=== PATIENT | female | born 1955 | race Caucasian/White ===

== ENCOUNTER → 2016-08-24 | Outpatient (CLI) | payer OTHER ==
[~2016-08-24] MED LIST: BROVANA15 MCG/2 M INH; DALIRESP500 MCG PO; DOXEPIN HCL100 MG PO; EFFEXOR 37.537.5 MG PO; EFFEXOR XR 75 M75 MG PO; FISH OIL 1,0001 EAC3 PO; FLONASE 0.05% N16 GM; KLONOPIN TAB 00.5 MG PO; LEVAQUIN500 MG PO; LEVAQUIN750 MG PO; MULTIVITAMINS1 EAC1 PO; NEURONTIN 300300 MG PO; NORVASC 5 MG TAB5 MG PO; PERFOROMIS20 MCG/2 M NEB; PERFOROMIS20 MCG/21 HHN; PRAVACHOL40 MG PO; PREDNISONE10 M1 PO; PROAIR HFA8.5 GM INH; PROPRANOLOL HCL60 MG PO; PROVENTIL HFA 61 INH INH; PULMICORT0.5 MG/2 M NEB; PULMICORT0.5 MG/21 INH; ROPINIROLE HC0.25 MG PO; SPIRIVA HANDIH18 MCG INH; SPIRIVA18 MCG INH; SYMBICORT 80-10.2 GM INH; TRAMADOL HCL50 MG PO; TYLENOL 325MG325 MG PO; ULTRAM50 MG PO; VENLAFAXINE HC150 MG PO; VENTOLIN/PROVE0.5 ML INH
== END ==
LOC: LAB 17:28
DX: R30.0 Dysuria (principal)
CPT/HCPCS: 81001; 87086

== ENCOUNTER → 2016-09-08 | Outpatient (CLI) | payer OTHER | LOC: SLEEP 21:30 | DX: G47.33 Obstructive sleep apnea (adult) (pediatric) (principal) | CPT/HCPCS: 95810 ==

== ENCOUNTER 2016-11-08 21:53 | Emergency (ER) | payer OTHER ==
[~2016-11-08 21:53] MED LIST changes: -BROVANA15 MCG/2 M INH; -DALIRESP500 MCG PO; -EFFEXOR XR 75 M75 MG PO; -FISH OIL 1,0001 EAC3 PO; -FLONASE 0.05% N16 GM; -LEVAQUIN500 MG PO; -PROAIR HFA8.5 GM INH; -ROPINIROLE HC0.25 MG PO; -SPIRIVA18 MCG INH; -VENLAFAXINE HC150 MG PO
[2016-11-09 00:17] LABS: HEMOGLOBIN 14.1 gm/dl (12.3-15.3); RED BLOOD COUNT 5.13 M/UL (4.00-5.10); WHITE BLOOD COUNT 9.3 K/UL (4.5-11.0)
[2016-12-07] MEDS ORDERED: KLONOPIN TAB 00.5 MG PO ×2 (08:48→08:49)
[2016-12-07] MEDS ORDERED: EFFEXOR XR 75 M75 MG PO (08:50)
[2016-12-07] MEDS ORDERED: DALIRESP500 MCG PO (08:50)
[2016-12-07] MEDS ORDERED: FISH OIL 1,0001 EAC3 PO (08:51)
[2016-12-07] MEDS ORDERED: SPIRIVA18 MCG INH (09:06)
[2016-12-07] MEDS ORDERED: FLONASE 0.05% N16 GM (09:07)
[2016-12-07] MEDS ORDERED: BROVANA15 MCG/2 M INH (09:59)
[2016-12-07] MEDS ORDERED: LEVAQUIN500 MG PO (10:05)
[2017-02-20] MEDS ORDERED: PROAIR HFA8.5 GM INH (01:49)
[2017-02-20] MEDS ORDERED: VENLAFAXINE HC150 MG PO (01:49)
[2017-02-20] MEDS ORDERED: SPIRIVA18 MCG INH (01:50)
[2017-02-20] MEDS ORDERED: ROPINIROLE HC0.25 MG PO (01:50)
[2017-02-21] MEDS ORDERED: TYLENOL 325MG325 MG PO (15:16)
== END 2016-11-09 04:15 | disposition home or self-care (01) ==
LOC: ER1 21:53
PROVIDERS: Physician Assistant
DX: J18.9 Pneumonia, unspecified organism (principal); J44.9 Chronic obstructive pulmonary disease, unspecified; C53.9 Malignant neoplasm of cervix uteri, unspecified; E78.5 Hyperlipidemia, unspecified; I10 Essential (primary) hypertension; F32.9 Major depressive disorder, single episode, unspecified; Z88.0 Allergy status to penicillin; Z88.2 Allergy status to sulfonamides; Z79.51 Long term (current) use of inhaled steroids; Z99.81 Dependence on supplemental oxygen; Z87.891 Personal history of nicotine dependence; Z79.899 Other long term (current) drug therapy
CPT/HCPCS: 36415; 36600; 71020; 80053; 82550; 82553; 82803; 83874; 84484; 85025; 87040; 93005; 94640; 94664; 96374; 99284; J2930

== ENCOUNTER 2020-06-14 21:44 | Emergency (ER) | payer MEDICARE, OTHER ==
[~2020-06-14 21:44] MED LIST changes: +ALBUTEROL2.5 MG/3 M INH; +ALBUTEROL2.5 MG/3 M NEB; +AZITHROMYCIN500 MG PO; +BROVANA15 MCG/2 M INH; +CEFUROXIME500 MG PO; +CLEOCIN HCL300 MG PO; +DALIRESP500 MCG PO; +DOXYCYCLINE HY100 M2 PO; +EFFEXOR XR 75 M75 MG PO; +FISH OIL 1,0001 EAC3 PO; +FLONASE 0.05% N16 GM; +GABAPENTIN600 MG PO; +INDERAL TAB 2020 MG PO; +KEFLEX CAP 500500 MG PO; +KLONOPIN1 MG PO; +LEVAQUIN500 MG PO; +LEVOFLOXACIN500 MG PO; +LEVOFLOXACIN750 MG PO; +MEDROL DOSEPAK 24 MG PO; +MEDROL4 MG PO; +MICROZIDE12.5 MG PO; -NEURONTIN 300300 MG PO; -NORVASC 5 MG TAB5 MG PO; +NORVASC10 MG PO; +OMNICEF 300 MG300 MG PO; +PREDNISONE 50 M50 MG PO; +PREDNISONE50 MG PO; +PROAIR HFA8.5 GM INH; -PROPRANOLOL HCL60 MG PO; +PROVENTIL HFA6.7 GM INH; +PROZAC20 MG PO; +ROPINIROLE HC0.25 MG PO; +SPIRIVA18 MCG INH; +TAMIFLU75 MG PO; +TESSALON PERLE100 MG PO; +VENLAFAXINE HC150 MG PO; +VENTOLIN HFA 66.7 GM INH; +VIBRAMYCIN100 MG PO; +ZITHROMAX250 MG PO; +ZYVOX600 MG PO
== END 2020-06-15 03:00 | disposition left against medical advice (07) ==
LOC: ER1 21:44
DX: M54.5 Low back pain (principal); Z53.21 Procedure and treatment not carried out due to patient leaving prior to being seen by health care provider
CPT/HCPCS: 72220

== ENCOUNTER → 2020-07-15 | Outpatient (CLI) | payer MEDICARE, OTHER | LOC: HEART 5 11:20 | DX: R55 Syncope and collapse (principal) ==

== ENCOUNTER 2021-01-21 21:34 | Emergency (ER) | payer MEDICARE, OTHER ==
[2021-01-21 22:34] LABS: HEMOGLOBIN 12.9 gm/dl (12.3-15.3); RED BLOOD COUNT 4.7 M/UL (4.00-5.10); WHITE BLOOD COUNT 7.1 K/UL (4.5-11.0)
[2021-01-22] MEDS ORDERED: VENTOLIN HFA 66.7 GM INH (00:56)
[2021-01-22] MEDS ORDERED: PREDNISONE50 MG PO (00:56)
== END 2021-01-22 01:08 | disposition home or self-care (01) ==
LOC: ER1 21:34
PROVIDERS: Physician Assistant
DX: J06.9 Acute upper respiratory infection, unspecified (principal); Z20.822 Contact with and (suspected) exposure to COVID-19; J44.9 Chronic obstructive pulmonary disease, unspecified; E78.5 Hyperlipidemia, unspecified; I10 Essential (primary) hypertension; Z90.89 Acquired absence of other organs; Z88.0 Allergy status to penicillin; Z88.2 Allergy status to sulfonamides
CPT/HCPCS: 71045; 80053; 85025; 99283; U0002

== ENCOUNTER 2021-05-23 00:18 | Emergency (ER) | payer MEDICARE, OTHER ==
[2021-05-23] MEDS ORDERED: CYCLOBENZAPRINE10 MG PO (03:18)
== END 2021-05-23 03:33 | disposition home or self-care (01) ==
LOC: ER1 00:18
DX: S50.02XA Contusion of left elbow, initial encounter (principal); S30.0XXA Contusion of lower back and pelvis, initial encounter; J44.9 Chronic obstructive pulmonary disease, unspecified; Z88.0 Allergy status to penicillin; Z88.6 Allergy status to analgesic agent; Z88.2 Allergy status to sulfonamides; Z88.8 Allergy status to other drugs, medicaments and biological substances; W01.0XXA Fall on same level from slipping, tripping and stumbling without subsequent striking against object, initial encounter
CPT/HCPCS: 72131; 73080; 99284

== ENCOUNTER → 2021-09-09 | Outpatient (CLI) | payer MEDICARE, OTHER ==
[~2021-09-09] MED LIST changes: +CYCLOBENZAPRINE10 MG PO
== END ==
LOC: HEART 5 11:04
DX: J44.9 Chronic obstructive pulmonary disease, unspecified (principal)
CPT/HCPCS: 94060; 94729

== ENCOUNTER → 2021-10-13 | Outpatient (CLI) | payer MEDICARE, OTHER | LOC: LAB 10:57 | DX: M54.9 Dorsalgia, unspecified (principal); R30.0 Dysuria | CPT/HCPCS: 81001; 87077; 87086; 87186 ==